=== PATIENT | female | born 1975 | race Caucasian/White ===

== ENCOUNTER 2022-04-23 09:57 | Outpatient (CLI) | payer OTHER ==
[2022-04-23 14:56] LABS: THYROID STIMULATING HORMONE 0.79 uIU/mL (0.34-5.60)
[2022-04-23 15:00] LABS: PROLACTIN 17.62 ng/mL
== END 2022-04-23 09:58 | disposition home or self-care (01) ==
LOC: LAB.S 09:57
PROVIDERS: ATTEND Physician Assistant Medical
DX: N64.52 Nipple discharge (principal)
CPT/HCPCS: 36415; 84146; 84443

== ENCOUNTER 2023-07-11 10:15 | Emergency (ER) | payer OTHER ==
[2023-07-11 10:35] VITALS: BP 130/76; O2SAT 100
[2023-07-11] MEDS ORDERED: TETANUS/DIPHTHERIA/PERTUSSIS 0.5 ML SYRINGE IM ONE (12:01)
[2023-07-11] MEDS ORDERED: AMOX/CLAV 875 MG/125 MG TABLET PO STA (12:01)
--- NOTE | 2023-07-11 12:05 | ED Physician Documentation ---
PD HPI WOUND RECHECK - Stated complaint Stated Complaint: DOG BITE - Chief complaint Chief Complaint: Wound - Histroy obtained from History obtained from: Patient - Additional information Additional information: 47-year-old woman was bitten by dog to the forehead last night. She has more pain this morning and wanted it checked out. She initially was unsure of her tetanus status but then looked at my chart and says she is up-to-date. Dog is fully immunized. PD PAST MEDICAL HISTORY - Past Medical History Past Medical History: No - Past Surgical History Past Surgical History: Yes General: Cholecystectomy - Present Medications Home Medications: Ambulatory Orders Medication Instructions Recorded Confirmed Amox/Clav 875/125 [Augmentin] 1 each PO Q12H #6 tablet 07/11/23 - Allergies Allergies/Adverse Reactions: Allergies Allergy/AdvReac Type Severity Reaction Status Date / Time erythromycin base Allergy Unknown Verified 07/11/23 10:29 - Social History Does the pt smoke?: No Smoking Status: Never smoker PD ED PE NORMAL - Vitals Vital signs reviewed: Yes - General General: Alert and oriented X 3, No acute distress - HEENT HEENT: PERRL, EOMI, Other (Shallow 1 cm vertical laceration to the mid forehead without signs of infection or swelling. No bony tenderness.) - Neuro Neuro: Alert and oriented X 3, Normal speech Results - Vitals Vitals: Vital Signs - 24 hr 07/11/23 10:24 Temperature 36.8 C Heart Rate 115 H Respiratory 18 Rate Blood Pressure 130/76 O2 Saturation 100 PD Medical Decision Making - ED course ED course: She tells me she is up-to-date on tetanus and declines tetanus vaccination today. Will put her on a very short course of prophylactic Augmentin but there is no sign of infection at this time. Departure - Departure Disposition: 01 Home, Self Care Clinical Impression: Animal bite with open wound Condition: Good Record reviewed to determine appropriate education?: Yes Instructions: Bites Scratches Animal Prescriptions: Amox/Clav 875/125 [Augmentin] 1 each PO Q12H #6 tablet Comments: Come back for any signs of infection which would include: Redness, swelling, drainage, increased pain, or fevers. You can wash it soap and water. Keep it covered and moist with bacitracin ointment which is available over the counter; avoid neosporin. Forms: PCP List Discharge Date/Time: 07/11/23 12:28
== END 2023-07-11 12:28 | disposition home or self-care (01) ==
LOC: ED 10:15
DX: S01.85XA Open bite of other part of head, initial encounter (principal); W54.0XXA Bitten by dog, initial encounter
CPT/HCPCS: 99282; 99283; A9270